=== PATIENT | male | born 1960 | race Caucasian/White ===

== ENCOUNTER 2016-12-18 07:44 | Outpatient (CLI) | payer OTHER ==
--- NOTE | 2016-12-18 08:27 | RAD ---
FOUR VIEWS THORACIC SPINE: Technique: AP, lateral, swimmer's and coned down views of the thoracic spine. FINDINGS: Osteophytes seen in the lower thoracic region. No definite evidence of thoracic spine fractures or b dominique lesions seen. IMPRESSION: No acute evidence of thoracic spine pathology. Lower thoracic degenerative changes seen. POS: [facility]
--- NOTE | 2016-12-18 08:31 | RAD ---
FOUR VIEWS LUMBAR SPINE: Technique: AP, lateral, flexion and extension views. FINDINGS: There are five non rib bearing lumbar vertebrae. Anterior osteophytes seen in the L1 to L5 levels. N o evidence of erica or retrolisthesis seen on flexion or extension views. Broad based posterior ost eophytes seen at the L4-5 level. No significant evidence of facet instability seen. IMPRESSION: No evidence of erica or retrolisthesis on flexion or extension views. POS: [facility]
--- NOTE | 2016-12-18 09:47 | MRI ---
MRI THORACIC SPINE: History: Mid and lower thoracic pain. Technique: Multiplanar, multisequence noncontrast enhanced MRI images thoracic spine obtained. FINDINGS: Images demonstrate the spinal cord to be unremarkable with no evidence of obvious cord masses or les ions. There is disc desiccation and broad based disc bulges at T6-7, T7-8, T8-9, and to a lesser degree T9 -10 and T11-12. There is also some disc desiccation at T11-12. No significant evidence of high grade thecal sac compression is seen. The neural foramen are patent. IMPRESSION: Multilevel mid and lower thoracic spine disc desiccation and mild broad based central disc bulges, e specially in the mid thoracic region. There does appear to be some irregularity involving the inferi or endplate of T9 with a small left T9-10 central and left paracentral disc bulge. POS: [facility]
--- NOTE | 2016-12-18 10:12 | MRI ---
MRI LUMBAR SPINE NONCONTRAST: Date: 12/18/16 HISTORY: Low back pain with radiculopathy. FINDINGS: The conus medullaris has a normal appearance. Vertebral body height and alignment are maintained. Th ere is desiccation of the lowest four intervertebral discs. T12-L1 and L1-2: The central canal and neural foramina are patent. Mild osteophytosis involves the facets. L2-3: Posterior disc bulge, along with facet joint hypertrophy and ligamentous thickening, result in mild stenosis of the central canal. The neural foramina remain patent. L3-4: Posterior disc bulge, along with facet joint hypertrophy and ligamentous thickening, result in mild stenosis of the central canal and each neural foramen. L4-5: There is disc space narrowing. Minimal disc bulge is present. The thecal sac remains patent. Degener ative changes result in mild stenosis of each neural foramen. L5-S1: Mild osteophytosis is present. The central canal and neural foramina are patent. IMPRESSION: Mild multilevel degenerative changes throughout the lumbar spine as detailed above. No focal disc he rniation or nerve root compression are apparent. POS: [facility]
== END 2016-12-18 07:45 | disposition home or self-care (01) ==
LOC: SCSMRI 07:44
PROVIDERS: ATTEND Anesthesiology Pain Medicine
DX: M47.814 Spondylosis without myelopathy or radiculopathy, thoracic region (principal); M51.26 Other intervertebral disc displacement, lumbar region; M47.816 Spondylosis without myelopathy or radiculopathy, lumbar region
CPT/HCPCS: 72072; 72120; 72146; 72148

== ENCOUNTER 2018-06-26 00:38 | Outpatient (CLI) | payer OTHER ==
--- NOTE | 2018-06-29 22:31 | EKG ---
Test Reason : Blood Pressure : / mmHG Vent. Rate : 078 BPM Atrial Rate : 078 BPM P-R Int : 162 ms QRS Dur : 092 ms QT Int : 398 ms P-R-T Axes : 060 048 065 degrees QTc Int : 453 ms Normal sinus rhythm with sinus arrhythmia Nonspecific T wave abnormality Abnormal ECG No previous ECGs available Confirmed by Nissa GARCIA ([id number]) on 06/29/2018 10:31:16 PM Referred By: KD Confirmed By:Nissa GARCIA
== END 2018-06-26 00:39 | disposition home or self-care (01) ==
LOC: LABBT 00:38
PROVIDERS: ATTEND Surgery
DX: Z01.818 Encounter for other preprocedural examination (principal); M79.9 Soft tissue disorder, unspecified
CPT/HCPCS: 93005; 93010

== ENCOUNTER 2018-07-02 06:52 | Day surgery (SDC) | payer OTHER ==
[2018-06-26 08:32] VITALS: BMI 36.7
[2018-07-02] MEDS ORDERED: Ondansetron PF 4 MG/2 ML Vial ONE (09:43)
[2018-07-02] MEDS ORDERED: Glycopyrrolate 0.2 MG/ML 5 ML SYRINGE ONE (09:43)
[2018-07-02] MEDS ORDERED: Ketorolac Tromethamine 30 MG/ML VIAL ONE (09:43)
[2018-07-02] MEDS ORDERED: Dexamethasone 20 MG/5 ML VIAL ONE (09:43)
[2018-07-02] MEDS ORDERED: PROPOFOL 200 MG/20 ML VIAL ONE (09:43)
[2018-07-02] MEDS ORDERED: Rocuronium Bromide 10 MG/ML (10ML VIAL) ONE (09:43)
[2018-07-02] MEDS ORDERED: Bupivacaine/Epinephrine 0.25% 30 ML VIAL ONE (09:54)
[2018-07-02] MEDS ORDERED: Fentanyl 250 MCG/5 ML VIAL ONE (10:07)
[2018-07-02] MEDS ORDERED: Midazolam HCl 2 mg/2 ml Vial ONE (10:07)
--- NOTE | 2018-07-02 12:52 | OP ---
DATE OF PROCEDURE: 07/02/2018 PREOPERATIVE DIAGNOSIS: Multiple soft tissue masses, back, bilateral upper extremity, abdomen and chest. POSTOPERATIVE DIAGNOSIS: Multiple soft tissue masses, back, bilateral upper extremity, abdomen and chest. PROCEDURE PERFORMED: Excision of multiple soft tissue masses to back, bilateral upper extremity, abdomen and chest. ANESTHESIA: General. ESTIMATED BLOOD LOSS: Minimal. COMPLICATIONS: None. SPECIMENS: Multiple labeled and sent to Path for final diagnosis. DESCRIPTION OF PROCEDURE: The patient was taken to the operating room and laid supine on the operating room table. After general anesthetic was obtained, he was placed in prone position. His back was prepped and draped in a sterile fashion. There were three 4 cm soft tissue masses removed on the back. The wounds were irrigated and closed using 3-0 Vicryl, 4-0 Monocryl, and Dermabond. The patient was then placed in supine position and bilateral arms, chest and abdomen were prepped and draped in a sterile fashion. Multiple soft tissue mass excisions each 2 cm were removed from the bilateral arms, as well as the abdomen and chest. There were approximately 6+ to the right arm, 6+ to the left arm, 4 to the abdomen and chest. They were all sent to Path as labeled by region for final diagnosis. The abdomen and chest wounds were closed using 3-0 Vicryl, 4-0 Monocryl, and Dermabond. Wounds were closed using stapler. Sterile dressings were placed to the bilateral upper extremity. The patient was then returned to Recovery in stable condition. All instrument counts, needle counts, and lap counts are correct. Job ID: [id number]
--- NOTE | 2018-07-08 05:37 | PQF ---
[facility] POST DISCHARGE CLINICAL DOCUMENTATION IMPROVEMENT CLARIFICATION FORM l Todays Date: 07/07/18 l Patients Name SOUMYA JOHNS l l Admit Date 07/02/18 l Disch Date 07/02/18 Plant Operations Vice President Name Edvin Carlson Email: [email or web address]: [phone] To be completed by Plant Operations Vice President: Present Clinical Indicators - Signs / Symptoms Results and Location in Medical Record [ ] Documentation of: [ ] [ ] Documentation of: [ ] [ ] Documentation of: [ ] [ ] Documentation of: [ ] [ ] Risks [ ] [ ] [ ] Treatment [ ] Lipoma of L and R arms, chest and abdomen Query for margins of excised lipoma from bilateral arms, chest and abdomen Query for exact number of lipoma excised from both L and R arms [ ] [ ] To be completed by Physician: MENDEZ CHAVEZ The documentation in this patients record requires clarification to ensure coding compliance and accuracy. Check the appropriate box and include in your discharge summary. [ ] [ ] [ ] [ ] Please check this box if this does not apply to this patient [ ] Unable to determine [ ] Other diagnosis: Review the following information and exercise your independent professional judgment in responding to the clarification. Based upon the clinical findings, risk factors, and treatment, please clarify if you are treating one of the above probable or suspected diagnoses. Physician Signature: Date Time MTDD
== END 2018-07-02 14:10 | disposition home or self-care (01) ==
LOC: SDC 06:52
PROVIDERS: ATTEND Surgery
PROC: 0JBG0ZZ Excision of Right Lower Arm Subcutaneous Tissue and Fascia, Open Approach (ICD-10-PCS; principal; 2018-07-02)
PROC: 0JB60ZZ Excision of Chest Subcutaneous Tissue and Fascia, Open Approach (ICD-10-PCS; principal; 2018-07-02)
PROC: 0JB70ZZ Excision of Back Subcutaneous Tissue and Fascia, Open Approach (ICD-10-PCS; principal; 2018-07-02)
PROC: 0JBD0ZZ Excision of Right Upper Arm Subcutaneous Tissue and Fascia, Open Approach (ICD-10-PCS; principal; 2018-07-02)
PROC: 0JBH0ZZ Excision of Left Lower Arm Subcutaneous Tissue and Fascia, Open Approach (ICD-10-PCS; principal; 2018-07-02)
PROC: 0JBF0ZZ Excision of Left Upper Arm Subcutaneous Tissue and Fascia, Open Approach (ICD-10-PCS; principal; 2018-07-02)
DX: D17.1 Benign lipomatous neoplasm of skin and subcutaneous tissue of trunk (principal); D17.21 Benign lipomatous neoplasm of skin and subcutaneous tissue of right arm; D17.22 Benign lipomatous neoplasm of skin and subcutaneous tissue of left arm; M19.90 Unspecified osteoarthritis, unspecified site; M46.1 Sacroiliitis, not elsewhere classified; Z79.899 Other long term (current) drug therapy; Z99.89 Dependence on other enabling machines and devices
CPT/HCPCS: 88304; J0690; J1100; J1885; J2250; J2405; J2704; J3010

== ENCOUNTER 2018-07-12 23:24 | Emergency (ER) | payer OTHER ==
[2018-07-13] MEDS ORDERED: Sulfameth/Trimethoprim DS 800-160mg TAB ONE (00:58)
[2018-07-13] MEDS ORDERED: Cephalexin 250 MG CAP ONE (00:58)
== END 2018-07-13 01:04 | disposition home or self-care (01) ==
LOC: SCSER 23:24
DX: L03.114 Cellulitis of left upper limb (principal)
CPT/HCPCS: 10060

== ENCOUNTER 2021-09-13 08:54 | Outpatient (CLI) | payer OTHER | END 2021-09-13 08:55 | disposition home or self-care (01) | LOC: SCSMRI 08:54 | PROVIDERS: ATTEND Family Medicine | DX: M47.26 Other spondylosis with radiculopathy, lumbar region (principal); M47.815 Spondylosis without myelopathy or radiculopathy, thoracolumbar region; M24.28 Disorder of ligament, vertebrae; M51.16 Intervertebral disc disorders with radiculopathy, lumbar region; M25.78 Osteophyte, vertebrae; M25.48 Effusion, other site; M43.16 Spondylolisthesis, lumbar region; M51.87 Other intervertebral disc disorders, lumbosacral region; M48.07 Spinal stenosis, lumbosacral region | CPT/HCPCS: 72148 ==